=== PATIENT | female | born 2000 | race Two or more races ===

== ENCOUNTER → 2022-05-21 | Outpatient (CLI) | payer OTHER ==
[2022-05-21 14:06] LABS: BASO % 0.3 % (0.0-1.0); EOS # 0.1 10^3/uL (0.0-0.5); EOS % 0.9 % (0.0-3.0); HEMOGLOBIN 11.6 g/dl (12.0-15.5); LYMPH # 1.7 10^3/uL (1.5-5.0); LYMPH % 18.8 % (24.0-44.0); MEAN CORPUSCULAR HEMOGLOBIN 27.9 pg (27.0-33.0); MEAN CORPUSCULAR HGB CONC 32.2 g/dl (32.0-36.5); MEAN CORPUSCULAR VOLUME 86.5 fl (80.0-96.0); MONO # 0.7 10^3/uL (0.0-0.8); MONO % 7.3 % (2.0-8.0); NEUTROPHILS # 6.5 10^3/uL (1.5-8.5); NEUTROPHILS % 72.4 % (36.0-66.0); PLATELET COUNT, AUTOMATED 251 10^3/uL (150-450); RED BLOOD COUNT 4.16 10^6/uL (4.00-5.40)
[2022-05-21 15:20] LABS: GC DNA AMPLIFICATION NEGATIVE (NEGATIVE)
[2022-05-21 15:38] LABS: HIV 1&2 SCREEN CENTAUR NEGATIVE (NEGATIVE)
== END ==
LOC: M PLALAB 10:59
PROVIDERS: ATTEND Advanced Practice Midwife
DX: Z34.02 Encounter for supervision of normal first pregnancy, second trimester (principal)

== ENCOUNTER → 2022-06-24 | Outpatient (CLI) | payer OTHER | LOC: M PLALAB 10:59 | PROVIDERS: ATTEND Obstetrics & Gynecology | DX: Z34.02 Encounter for supervision of normal first pregnancy, second trimester (principal) ==

== ENCOUNTER → 2022-07-21 | Outpatient (CLI) | payer OTHER | LOC: M WHC 14:13 | PROVIDERS: ATTEND Advanced Practice Midwife | DX: Z34.02 Encounter for supervision of normal first pregnancy, second trimester (principal); Z3A.21 21 weeks gestation of pregnancy ==

== ENCOUNTER → 2022-08-19 | Outpatient (CLI) | payer OTHER ==
[2022-08-19 17:43] LABS: HEMATOCRIT 30.7 % (36.0-47.0); HEMOGLOBIN 9.6 g/dl (12.0-15.5); MEAN CORPUSCULAR HEMOGLOBIN 28.3 pg (27.0-33.0); MEAN CORPUSCULAR HGB CONC 31.3 g/dl (32.0-36.5); MEAN CORPUSCULAR VOLUME 90.6 fl (80.0-96.0); PLATELET COUNT, AUTOMATED 273 10^3/uL (150-450); RED BLOOD COUNT 3.39 10^6/uL (4.00-5.40); WHITE BLOOD COUNT 11.7 10^3/uL (4.0-10.0)
[2022-08-19 18:59] LABS: GC DNA AMPLIFICATION NEGATIVE (NEGATIVE)
== END ==
LOC: M PLALAB 14:39
PROVIDERS: ATTEND Advanced Practice Midwife
DX: Z34.02 Encounter for supervision of normal first pregnancy, second trimester (principal)
CPT/HCPCS: 36415; 82950; 85027; 86850; 86900; 86901; 87810; 87850; J2790

== ENCOUNTER → 2022-11-04 | Outpatient (REF) | payer OTHER | LOC: M PLALAB 10:51 | PROVIDERS: ATTEND Advanced Practice Midwife | DX: Z34.80 Encounter for supervision of other normal pregnancy, unspecified trimester (principal) | CPT/HCPCS: 87081; 87186; G0463 ==

== ENCOUNTER 2022-11-25 00:18 | Outpatient (CLI) | payer OTHER ==
[~2022-11-25] VITALS: Ht 170.2 cm; Wt 72.7 kg
[2022-11-25 00:46] VITALS: BP 134/98
[2022-11-25 01:27] VITALS: BP 123/77
[2022-11-25] MEDS ORDERED: PRENTAB9 PO (17:52)
[2022-11-25] MEDS ORDERED: ACET325C5 PO (17:52)
[2022-11-26] MEDS ORDERED: TUMS500C PO (23:29)
[2022-11-29] MEDS ORDERED: ACET-683 PO (10:51)
== END 2022-11-25 03:24 | disposition home or self-care (01) ==
LOC: M LDO 00:18
PROVIDERS: ATTEND Advanced Practice Midwife
DX: O47.1 False labor at or after 37 completed weeks of gestation (principal); Z3A.40 40 weeks gestation of pregnancy
CPT/HCPCS: 59025; G0463

== ENCOUNTER 2022-11-25 17:39 | Outpatient (CLI) | payer OTHER ==
[~2022-11-25] VITALS: Ht 170.2 cm; Wt 72.0 kg
[2022-11-25 17:48] VITALS: BP 143/89
[2022-11-25] MEDS ORDERED: PRENTAB9 PO (17:52)
[2022-11-25] MEDS ORDERED: ACET325C5 PO (17:52)
[2022-11-25 18:26] VITALS: BP 141/77
[2022-11-25 19:59] VITALS: BP 140/80
[2022-11-26] MEDS ORDERED: TUMS500C PO (23:29)
[2022-11-29] MEDS ORDERED: ACET-683 PO (10:51)
== END 2022-11-25 20:32 | disposition home or self-care (01) ==
LOC: M LDO 17:39
PROVIDERS: ATTEND Specialist
DX: O47.1 False labor at or after 37 completed weeks of gestation (principal); Z3A.40 40 weeks gestation of pregnancy
CPT/HCPCS: 59025; G0463

== ENCOUNTER → 2023-04-07 | Outpatient (REF) | payer OTHER ==
[~2023-04-07] MED LIST: ACET-683 PO; ACET325C5 PO; PRENTAB9 PO; TUMS500C PO
== END ==
LOC: M PLALAB 11:41
PROVIDERS: ATTEND Advanced Practice Midwife
DX: Z12.4 Encounter for screening for malignant neoplasm of cervix (principal); R87.610 Atypical squamous cells of undetermined significance on cytologic smear of cervix (ASC-US)

== ENCOUNTER → 2024-05-22 | Outpatient (CLI) | payer OTHER ==
[2024-05-22 15:28] LABS: ESTRADIOL 291.8 PG/ML; FOLLICLE STIMULATING HORMONE 0.9 mIU/ML; LUTEINIZING HORMONE 0.1 mIU/ML
[2024-05-22 15:29] LABS: HCG, SERUM QUALITATIVE POSITIVE (NEGATIVE); PROLACTIN 10.43 NG/ML
[2024-05-22 15:31] LABS: PROGESTERONE 19.81 NG/ML
[2024-05-22 16:01] LABS: HCG, SERUM QUANTITATIVE 14334.7 MIU/ML (<4.2)
== END ==
LOC: M PLALAB 13:46
PROVIDERS: ATTEND Nurse Practitioner Family
DX: Z12.4 Encounter for screening for malignant neoplasm of cervix (principal); R87.610 Atypical squamous cells of undetermined significance on cytologic smear of cervix (ASC-US)
CPT/HCPCS: 36415; 82670; 83001; 83002; 84144; 84146; 84702; 84703; 87624; G0123